=== PATIENT | male | born 1990 | race American Indian/Alaskan Native ===

== ENCOUNTER 2016-09-05 11:16 | Emergency (ER) | payer BC ==
[2016-09-05] MEDS ORDERED: PEPCID IV ONE (11:55)
[2016-09-05] MEDS ORDERED: BENADRYL IV ONE (11:55)
[2016-09-05 12:12] VITALS: BP 115/70
--- NOTE | 2016-09-05 13:08 | Emergency Department Report ---
ED General Adult HPI - General Chief complaint: Allergic Reaction Stated complaint: STUNG BY BEES/ALLERIC REACTION Time Seen by Provider: 09/05/16 12:58 Source: patient, family, RN notes reviewed Mode of arrival: Ambulatory Limitations: No Limitations - History of Present Illness Initial comments: This is a 26-year-old male. He is previously unknown to me. The patient has a past medical history of allergic reactions to insects. Patient is stung twice in the right upper extremity prior to 11:30 AM today. He reports hives. Patient denies headache, neck pain, chest pain, abdominal pain and shortness of breath. He was given Solu-Medrol, Pepcid and Benadryl. His symptoms have now resolved. He has no symptoms at this time. He would like to go home. -: Sudden Severity scale (0 -10): 0 Consistency: now resolved Improves with: medication Worsens with: none Associated Symptoms: denies other symptoms - Related Data Previous Rx's Medication Instructions Recorded Last Taken Type EPINEPHrine [Epipen 2-Terrence] 0.3 mg IM DAILY PRN #2 ml 09/05/16 Unknown Rx Famotidine [Pepcid] 20 mg PO BID #10 tablet 09/05/16 Unknown Rx diphenhydrAMINE [Benadryl] 50 mg PO Q8HR PRN #20 capsule 09/05/16 Unknown Rx Allergies Allergy/AdvReac Type Severity Reaction Status Date / Time bee venom (honey bee) AdvReac Swelling Verified 09/05/16 11:37 ED Review of Systems ROS: Stated complaint: STUNG BY BEES/ALLERIC REACTION Other details as noted in HPI Constitutional: denies: fever, malaise Eyes: denies: vision change Respiratory: denies: cough, shortness of breath Cardiovascular: denies: chest pain Gastrointestinal: denies: nausea Genitourinary: as per HPI Skin: rash, lesions, pruritus Neurological: denies: headache, weakness Psychiatric: denies: anxiety ED Past Medical Hx - Past Medical History Previous Medical History?: No - Surgical History Past Surgical History?: No - Social History Smoking Status: Never Smoker Substance Use Type: None - Medications Home Medications: Home Medications Medication Instructions Recorded Confirmed Last Taken Type EPINEPHrine [Epipen 2-Terrence] 0.3 mg IM DAILY PRN #2 ml 09/05/16 Unknown Rx Famotidine [Pepcid] 20 mg PO BID #10 tablet 09/05/16 Unknown Rx diphenhydrAMINE [Benadryl] 50 mg PO Q8HR PRN #20 capsule 09/05/16 Unknown Rx ED Physical Exam - General Limitations: No Limitations General appearance: alert, in no apparent distress - Head Head exam: Present: atraumatic, normocephalic - Eye Eye exam: Present: normal appearance, EOMI. Absent: nystagmus - ENT ENT exam: Present: normal exam, normal orophraynx, mucous membranes moist, normal external ear exam - Neck Neck exam: Present: normal inspection, full ROM. Absent: tenderness, meningismus - Respiratory Respiratory exam: Present: normal lung sounds bilaterally. Absent: respiratory distress, wheezes, rales, rhonchi, stridor, chest wall tenderness, accessory muscle use, decreased breath sounds, prolonged expiratory - Cardiovascular Cardiovascular Exam: Present: regular rate, normal rhythm, normal heart sounds. Absent: bradycardia, tachycardia, irregular rhythm, systolic murmur, diastolic murmur, rubs, gallop - GI/Abdominal GI/Abdominal exam: Present: soft, normal bowel sounds. Absent: distended, tenderness, guarding, rebound, rigid, pulsatile mass - Rectal Rectal exam: Present: deferred - Extremities Exam Extremities exam: Present: normal inspection, full ROM, normal capillary refill. Absent: tenderness, pedal edema, joint swelling, calf tenderness - Back Exam Back exam: Present: normal inspection, full ROM. Absent: tenderness, CVA tenderness (R), CVA tenderness (L), muscle spasm, paraspinal tenderness, vertebral tenderness - Neurological Exam Neurological exam: Present: alert, oriented X3, normal gait, other (no facial droop. Tongue midline. Extraocular movements intact bilaterally. Facial sensation intact to light touch in V1, V2, V3 distribution bilaterally. 5 and a 5 strength in 4 extremities. Sensation intact to light touch in 4 extremities.). Absent: motor sensory deficit - Psychiatric Psychiatric exam: Present: normal affect, normal mood - Skin Skin exam: Present: warm, dry, intact, normal color, other (there is no redness , pus or streaking. No retained stingers are noted.). Absent: rash ED Course Vital Signs 09/05/16 09/05/16 09/05/16 11:33 12:10 12:11 Temperature 98.7 F 98.0 F Pulse Rate 67 65 Respiratory 18 16 16 Rate Blood Pressure 147/69 Blood Pressure 115/70 [Left] O2 Sat by Pulse 100 100 100 Oximetry ED Medical Decision Making - Lab Data Vital Signs 09/05/16 09/05/16 09/05/16 11:33 12:10 12:11 Temperature 98.7 F 98.0 F Pulse Rate 67 65 Respiratory 18 16 16 Rate Blood Pressure 147/69 Blood Pressure 115/70 [Left] O2 Sat by Pulse 100 100 100 Oximetry - Medical Decision Making Differential diagnosis: Insect envenomation, urticaria, now resolved Assessment and plan: 26-year-old male status post insect sting envenomation, with minimal symptoms. There is no stridor or dysphonia. He is speaking in sentences. No obvious hives. There are no obvious cutaneous findings at this time. He is clinically well-appearing. Patient is observed in the ER for 3 hours. There is no airway compromise. I don't believe the patient requires systemic steroids. The patient will be discharged with as needed Benadryl, Pepcid, and as needed epinephrine pens. Return precautions are reviewed with the patient and his mother, both verbalize understanding. Critical care attestation.: If time is entered above; I have spent that time in minutes in the direct care of this critically ill patient, excluding procedure time. ED Disposition Clinical Impression: Insect sting Disposition: DC-01 TO HOME OR SELFCARE Is pt being admited?: No Does the pt Need Aspirin: No Condition: Stable Instructions: Anaphylaxis (ED), Insect Bite or Sting (ED) Additional Instructions: Take the medications as directed. Avoid exposure to insect bites and insect stings. Follow up with a primary care doctor within the next 2-3 weeks. Return to the ER right away with inability to speak, inability to breathe, fevers, chills, chest pain, shortness of breath, nausea, vomiting, confusion, inability to tolerate liquid feeds. Referrals: PRIMARY CARE, [Primary Care Provider] - 3-5 Days MELI HERNANDEZ MD [Staff Physician] - 3-5 Days
== END 2016-09-05 14:18 | disposition home or self-care (01) ==
LOC: ED 11:16
DX: T63.441A Toxic effect of venom of bees, accidental (unintentional), initial encounter (principal); Z91.030 Bee allergy status
CPT/HCPCS: 96374; 96375; 99282; J1200; J2930

== ENCOUNTER 2018-04-20 17:46 | Emergency (ER) | payer OTHER ==
[2018-04-20 17:54] VITALS: BP 136/83
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
[2018-04-20] MEDS ORDERED: NORCO 5/325 PO STA (23:10)
== END 2018-04-20 23:35 | disposition home or self-care (01) ==
LOC: ED 17:46
DX: M62.830 Muscle spasm of back (principal); Z91.030 Bee allergy status; V89.2XXA Person injured in unspecified motor-vehicle accident, traffic, initial encounter; Y93.89 Activity, other specified; Y92.488 Other paved roadways as the place of occurrence of the external cause; Y99.8 Other external cause status
CPT/HCPCS: 99283